=== PATIENT | female | born 1950 | race Caucasian/White ===

== ENCOUNTER 2021-03-03 15:01 | Outpatient (CLI) | payer MEDICARE, OTHER ==
[2021-03-04 01:52] LABS: SARS-CoV-2 PCR by NAA Not Detected (NotDetected)
== END 2021-03-03 15:02 | disposition home or self-care (01) ==
LOC: LABBT 15:01
PROVIDERS: ATTEND Ophthalmology Retina Specialist
DX: Z01.812 Encounter for preprocedural laboratory examination (principal); H54.7 Unspecified visual loss; Z20.822 Contact with and (suspected) exposure to COVID-19
CPT/HCPCS: U0003; U0005; 87635

== ENCOUNTER 2021-03-08 06:54 | Day surgery (SDC) | payer MEDICARE, OTHER ==
[2021-03-07 15:55] VITALS: BMI 30.7
[~2021-03-08 06:54] MED LIST: EPINEPHrine 0.3 MG in Ophthalmic Irrigation Solution 500 ML IRR SCH; Fentanyl 100 MCG/2 ML VIAL ONE; Midazolam HCl 2 mg/2 ml Vial ONE
[2021-03-08] MEDS ORDERED: Phenylephrine 2.5% Ophth Soln 5 ML BOT ONE ×2 (07:51→07:52)
[2021-03-08] MEDS ORDERED: Cyclopentolate 1% Ophth Drops 15 ML BOT ONE ×2 (07:52→08:03)
[2021-03-08] MEDS ORDERED: Cyclopentolate W/ Phenylephrin 40 DROP/2 ML BOT ONE (07:53)
[2021-03-08] MEDS ORDERED: Indocyanine Green 25 MG/10 ML VIAL ONE (09:07)
[2021-03-08] MEDS ORDERED: CEFAZOLIN 1 GM VIAL ONE (09:07)
[2021-03-08] MEDS ORDERED: Maxitrol 0.1% Opth Oint 3.5 GM TUBE ONE (09:07)
[2021-03-08] MEDS ORDERED: Lidocaine 1% PF 5 ML VIAL ONE (09:07)
[2021-03-08] MEDS ORDERED: Triamcinolone 40 MG/ML VIAL ONE (09:07)
[2021-03-08] MEDS ORDERED: PROPOFOL 200 MG/20 ML VIAL ONE (09:07)
[2021-03-08] MEDS ORDERED: Bupivacaine PF 0.75% SDV 10 ML ONE (09:07)
[2021-03-08] MEDS ORDERED: Lidocaine 4% PF 5 ML AMP ONE (09:07)
== END 2021-03-08 10:45 | disposition home or self-care (01) ==
LOC: SDC 06:54
PROVIDERS: ATTEND Ophthalmology Retina Specialist
PROC: 08T43ZZ Resection of Right Vitreous, Percutaneous Approach (ICD-10-PCS; principal; 2021-03-08)
PROC: 08NE3ZZ Release Right Retina, Percutaneous Approach (ICD-10-PCS; 2021-03-08)
DX: H35.371 Puckering of macula, right eye (principal); E78.5 Hyperlipidemia, unspecified; G47.30 Sleep apnea, unspecified; F17.200 Nicotine dependence, unspecified, uncomplicated; Z79.82 Long term (current) use of aspirin; Z79.899 Other long term (current) drug therapy
CPT/HCPCS: J0171; J0690; J2250; J2704; J3010; J3301; J3490